=== PATIENT | female | born 1990 | race Caucasian/White ===

== ENCOUNTER 2018-05-10 15:26 | Emergency (ER) | payer OTHER ==
[~2018-05-10] VITALS: Ht 177.8 cm; Wt 77.1 kg
[2018-05-10 15:32] VITALS: BP 137/80
--- NOTE | 2018-05-10 15:32 | NUR ---
ED Nurse Note: patient brought in by ambulance [id number] [facility], altered mental status, possible OD. patient is confused at this time.
--- NOTE | 2018-05-10 15:40 | Emergency Room Report ---
History of Present Illness General Chief Complaint: Altered Mental Status Source: EMS (Denis Mensah MD) Present Illness HPI Patient is a 28-year-old female brought in by EMS with [employer] for increased altered mental status. Patient was noted to have bizarre behavior. Patient was noted to have unknown past medical history. History is markedly limited by patient's mental status and poor historian.. Patient had been found lying in the park (Denis Mensah MD) Allergies: Coded Allergies: UNABLE TO ASSESS (Unverified , 05/10/18) Patient History Last Menstrual Period: unk Reviewed Nursing Documentation: PMH: Agreed; PSxH: Agreed (Denis Mensah MD) Nursing Documentation-PMH Past Medical History Deferred: Pt Cognitively Impaired (Denis Mensah MD) Review of Systems All Other Systems: negative except mentioned in HPI (Denis Mensah MD) Physical Exam Vital Signs Date Time Temp Pulse Resp B/P (MAP) Pulse Ox O2 Delivery O2 Flow Rate FiO2 05/10/18 15:22 98.4 98 18 137/80 97 Room Air Sp02 EP Interpretation: reviewed, normal General Appearance: normal inspection, well appearing, no apparent distress, alert, non-toxic Head: atraumatic ENT: normal ENT inspection, hearing grossly normal, normal voice Neck: normal inspection, full range of motion, supple, no bony tend Respiratory: normal inspection, lungs clear, normal breath sounds, no respiratory distress, no retraction, no wheezing Cardiovascular #1: regular rate, rhythm, no edema Gastrointestinal: normal inspection, normal bowel sounds, non tender, soft, no guarding, no hernia Genitourinary: no CVA tenderness Musculoskeletal: normal inspection, back normal, normal range of motion Neurologic: normal inspection, alert, oriented x3, responsive, human resources district manager III-XII nml as tested, speech normal Psychiatric: normal inspection, judgement/insight normal, mood/affect normal Skin: normal inspection, normal color, no rash (Denis Mensah MD) Medical Decision Making Diagnostic Impression: Primary Impression: Bipolar disorder Qualified Codes: F31.64 - Bipolar disorder, current episode mixed, severe, with psychotic features Additional Impression: UTI (urinary tract infection) Qualified Codes: N30.00 - Acute cystitis without hematuria ER Course Patient presented for altered mental status. Differential diagnosis included was not limited to alcohol intoxication, substance abuse, psychosis, CVA among others. Because of complexity of patient's case laboratory testing. Patient was noted to have some bizarre behavior. She was given medications due to agitation. (Denis Mensah MD) ER Course See above note. Patient still with bizarre thought processes. States PMD wanted her off of lithium. She also states she gets a "shot" of Abilify. Abilify ordered. Needs psychiatric evaluation in AM for placement. Slight improvement after Abilify. Medically clear for psychiatric evaluation. Signed out to Dr. Smith. Laboratory Tests Test 05/10/18 15:57 05/10/18 16:51 White Blood Count 10.7 K/UL (4.8-10.8) Red Blood Count 4.01 M/UL (4.20-5.40) L Hemoglobin 12.3 G/DL (12.0-16.0) Hematocrit 36.1 % (37.0-47.0) L Mean Corpuscular Volume 90 FL (80-99) Mean Corpuscular Hemoglobin 30.7 PG (27.0-31.0) Mean Corpuscular Hemoglobin Concent 34.1 G/DL (32.0-36.0) Red Cell Distribution Width 11.5 % (11.6-14.8) L Platelet Count 240 K/UL (150-450) Mean Platelet Volume 6.5 FL (6.5-10.1) Neutrophils (%) (Auto) 80.2 % (45.0-75.0) H Lymphocytes (%) (Auto) 12.9 % (20.0-45.0) L Monocytes (%) (Auto) 5.3 % (1.0-10.0) Eosinophils (%) (Auto) 0.1 % (0.0-3.0) Basophils (%) (Auto) 1.5 % (0.0-2.0) Sodium Level 141 MMOL/L (136-145) Potassium Level 3.8 MMOL/L (3.5-5.1) Chloride Level 106 MMOL/L (98-107) Carbon Dioxide Level 24 MMOL/L (21-32) Anion Gap 11 mmol/L (5-15) Blood Urea Nitrogen 13 mg/dL (7-18) Creatinine 1.0 MG/DL (0.55-1.30) Estimate Glomerular Filtration Rate > 60 mL/min (>60) Glucose Level 108 MG/DL (74-106) H Calcium Level 8.8 MG/DL (8.5-10.1) Total Bilirubin 0.3 MG/DL (0.2-1.0) Aspartate Amino Transferase (AST) 22 U/L (15-37) Alanine Aminotransferase (ALT) 25 U/L (12-78) Alkaline Phosphatase 45 U/L (46-116) L Total Protein 7.6 G/DL (6.4-8.2) Albumin 4.2 G/DL (3.4-5.0) Globulin 3.4 g/dL Albumin/Globulin Ratio 1.2 (1.0-2.7) Salicylates Level 0.5 ug/mL (2.8-20) L Acetaminophen Level < 2 MCG/ML (10-30) L Serum Alcohol < 3 mg/dL Rapid Plasma Reagin Pending Urine Color Pale yellow Urine Appearance Slightly cloudy Urine pH 7 (4.5-8.0) Urine Specific [place] 1.005 (1.005-1.035) Urine Protein 1+ (NEGATIVE) H Urine Glucose (UA) Negative (NEGATIVE) Urine Ketones Negative (NEGATIVE) Urine Blood 1+ (NEGATIVE) H Urine Nitrite Negative (NEGATIVE) Urine Bilirubin Negative (NEGATIVE) Urine Urobilinogen Normal MG/DL (0.0-1.0) Urine Leukocyte Esterase 2+ (NEGATIVE) H Urine RBC 2-4 /HPF (0 - 2) H Urine WBC 40-60 /HPF (0 - 2) H Urine Squamous Epithelial Cells Many /LPF (NONE/OCC) H Urine Bacteria Moderate /HPF (NONE) H Urine HCG, Qualitative Negative (NEGATIVE) Urine Opiates Screen Negative (NEGATIVE) Urine Barbiturates Screen Negative (NEGATIVE) Phencyclidine (PCP) Screen Negative (NEGATIVE) Urine Amphetamines Screen Negative (NEGATIVE) Urine Benzodiazepines Screen Negative (NEGATIVE) Urine Cocaine Screen Negative (NEGATIVE) Urine Marijuana (THC) Screen Positive (NEGATIVE) H (Shahram Dill MD) Last Vital Signs Date Time Temp Pulse Resp B/P (MAP) Pulse Ox O2 Delivery O2 Flow Rate FiO2 05/10/18 15:32 98.4 98 18 137/80 97 Room Air Status: improved (Denis Mensah MD) Status: improved (Shahram Dill MD) Disposition: HOME, SELF-CARE Condition: Improved Scripts Cephalexin* (KEFLEX*) 500 Mg Capsule 500 MG ORAL EVERY 6 HOURS, #28 CAP Prov: Denis Mensah MD 05/11/18 Denis Mensah MD May 10, 2018 15:40 Shahram Dill MD May 11, 2018 04:11
[2018-05-10] MEDS ORDERED: Haloperidol 5mg/ml Inj IM ONE (15:45)
[2018-05-10] MEDS ORDERED: DiphenhydrAMINE 50mg/ml Inj IM ONE (15:45)
--- NOTE | 2018-05-10 16:20 | NUR ---
HAND-OFF: Report given to Tasia Dale RN.
[2018-05-10 16:37] LABS: ANION GAP 11 mmol/L (5-15); BASOPHILS % (AUTO) 1.5 % (0.0-2.0); BLOOD UREA NITROGEN 13 mg/dL (7-18); CALCIUM 8.8 MG/DL (8.5-10.1); CARBON DIOXIDE 24 MMOL/L (21-32); CHLORIDE 106 MMOL/L (98-107); EOSINOPHILS % (AUTO) 0.1 % (0.0-3.0); HEMATOCRIT 36.1 % (37.0-47.0); HEMOGLOBIN 12.3 G/DL (12.0-16.0); LYMPHOCYTES % (AUTO) 12.9 % (20.0-45.0); MEAN CORPUSCULAR VOLUME 90 FL (80-99); MONOCYTES % (AUTO) 5.3 % (1.0-10.0); NEUTROPHILS % (AUTO) 80.2 % (45.0-75.0); PLATELET COUNT 240 K/UL (150-450); POTASSIUM 3.8 MMOL/L (3.5-5.1); RED BLOOD COUNT 4.01 M/UL (4.20-5.40); RED CELL DISTRIBUTION WIDTH 11.5 % (11.6-14.8); SODIUM 141 MMOL/L (136-145); WHITE BLOOD COUNT 10.7 K/UL (4.8-10.8)
[2018-05-10 16:47] LABS: ALANINE AMINOTRANSFERASE 25 U/L (12-78); ALBUMIN 4.2 G/DL (3.4-5.0); ALBUMIN/GLOBULIN RATIO 1.2 (1.0-2.7); ALKALINE PHOSPHATASE 45 U/L (46-116); ASPARTATE AMINO TRANSFERASE 22 U/L (15-37); BILIRUBIN,TOTAL 0.3 MG/DL (0.2-1.0)
--- NOTE | 2018-05-10 18:25 | NUR ---
ED Nurse Note: Pt restless and disoriented and keeps walking out from her room. Sylvia is sitting. Charge nurse aware.
[2018-05-10 19:30] VITALS: BP 135/76
--- NOTE | 2018-05-10 19:36 | NUR ---
HAND-OFF: Report given to Yan STAFFORD.
--- NOTE | 2018-05-10 19:45 | NUR ---
Transport pt to the 4th floor, asst her with a shower ,linen changed, pt is back in bed resting comfortably.
--- NOTE | 2018-05-10 19:56 | NUR ---
ED Nurse Note: Pt out of room, seems euphoric, indiscriminately physically approaching men - visitors, patients, staff. Safety of all maintained. Pt easily escorted back to room.
--- NOTE | 2018-05-10 19:56 | NUR ---
Went to get the pt something to eat, ask Sebastien SOL to keep an eye on the pt while I was away from the room.
--- NOTE | 2018-05-10 21:02 | NUR ---
Assist pt with a phone call to her ex-boyfriend [phone].only #she memorizes because her IPhone needs to be charged.
[2018-05-10 21:24] VITALS: BP 133/75
--- NOTE | 2018-05-10 22:14 | NUR ---
Pt is very restless, up and constantly pacing.
[2018-05-10 23:20] VITALS: BP 130/72
[2018-05-10 23:21] LABS: BILIRUBIN, URINE NEGATIVE (NEGATIVE); COLOR,URINE PALE YELLOW; GLUCOSE, URINE (UA) NEGATIVE (NEGATIVE); KETONES,URINE NEGATIVE (NEGATIVE); LEUKOCYTE ESTERASE ,URINE 2+ (NEGATIVE); NITRITE,URINE NEGATIVE (NEGATIVE); PH,URINE 7 (4.5-8.0); PROTEIN,URINE 1+ (NEGATIVE); UROBILINOGEN,URINE NORMAL MG/DL (0.0-1.0)
--- NOTE | 2018-05-10 23:43 | NUR ---
ED Nurse Note: Spoke with Pt's former , who states pt averages a manic phase annually, and has been placed on 5150 x 3, in the last five years. Pt is clearly escalating/manic.
[2018-05-10 23:48] LABS: APPEARANCE,URINE SLIGHTLY CLOUDY
[2018-05-11] VITALS (9 sets, daily range): BP systolic 106–130; BP diastolic 62–72
--- NOTE | 2018-05-11 03:26 | NUR ---
Pt finally went to sleep.side rails up for pt safety.
--- NOTE | 2018-05-11 03:40 | NUR ---
Pt awaken from the moans and groans comming from the pt in ortho.
--- NOTE | 2018-05-11 04:28 | NUR ---
ED Nurse Note: Patient is resting comfortably, no s/s of acute distress. Patient able to execute medication administration. Sitter at bedside.
--- NOTE | 2018-05-11 04:43 | NUR ---
Had to take a break to the B/R, securityguard was sitting at the doorway.
--- NOTE | 2018-05-11 04:45 | NUR ---
I am back from the B/R ,pt is still asleep and breathing normal.
--- NOTE | 2018-05-11 05:19 | NUR ---
Pt is awake, assist her to the b/r and back to her room.pt walk with a steady gait.
--- NOTE | 2018-05-11 07:15 | NUR ---
Jamey escobedo in [facility] - 05/11/18 at 0734 by JAMAL VENTURA:
--- NOTE | 2018-05-11 07:15 | NUR ---
ED Nurse Note: Received patient in bed, Patient is alert and awake x3, listening to music and singing. sitter at bedside. Breakfast try provided to the patient.
--- NOTE | 2018-05-11 13:00 | NUR ---
ED Nurse Note: lunch tray provided to the patient.
--- NOTE | 2018-05-11 14:00 | NUR ---
DEANDRE FROM [facility] CALLED WILL BE HERE TO EVALUATE HER SOON HE CAN
--- NOTE | 2018-05-11 16:44 | NUR ---
ED Nurse Note: confirmed with charge nurse that [facility] is notified and they will come to check the patient, patient updated as well.
--- NOTE | 2018-05-11 17:50 | NUR ---
ED Nurse Note: provided dinner tray for patient.
--- NOTE | 2018-05-11 19:23 | NUR ---
HAND-OFF: Report given to Leo Jarrett RN.
--- NOTE | 2018-05-11 20:35 | NUR ---
ED Nurse Note: pt on gurney, calm and cooperative. pt has no complaint at the moment. sitter on bedside. vital signs within normal limit. will continue to monitor
--- NOTE | 2018-05-11 22:47 | NUR ---
ED Nurse Note: psyche team on bedside talking with pt. will continue to monitor
[2018-05-11] MEDS ORDERED: ABILIFY10 MG ORAL (22:55)
[2018-05-11] MEDS ORDERED: CEPHALEXIN500 MG ORAL (23:00)
--- NOTE | 2018-05-11 23:00 | NUR ---
ED Nurse Note: Michelle from [facility] states patient does not meet criteria for a hold.
--- NOTE | 2018-05-11 23:03 | NUR ---
ED Nurse Note: Patient is being discharged from ED alert and oriented x4, ambulatory with a steady gait, VSS. Patient acknowledged the need to follow up with a PMD, Patient was advised to return if symptoms worsen. prescription in hand, ID band removed. pt left the ed with all the belongings.
== END 2018-05-11 23:05 | disposition home or self-care (01) ==
LOC: EDBD 15:26 → EMR 18:04
DX: F31.9 Bipolar disorder, unspecified (principal); N39.0 Urinary tract infection, site not specified; R41.82 Altered mental status, unspecified
CPT/HCPCS: 36415; 80053; 80307; 80329; 81003; 81025; 85025; 86592; 87086; 96372; 99284; J1200; J1630

== ENCOUNTER 2018-05-17 14:52 | Emergency (ER) | payer OTHER ==
[2018-05-17] VITALS (13 sets, daily range): BP systolic 105–125; BP diastolic 70–92
[~2018-05-17] VITALS: Ht 177.8 cm; Wt 83.9 kg
[~2018-05-17 14:52] MED LIST: ABILIFY10 MG ORAL; CEPHALEXIN500 MG ORAL
--- NOTE | 2018-05-17 14:52 | NUR ---
ED Nurse Note: patient brought in by ambulance, found on the ground in a parking lot acting bizarre.
--- NOTE | 2018-05-17 15:06 | Emergency Room Report ---
History of Present Illness General Chief Complaint: General Complaint Source: Patient, EMS (Denis Mensah MD) Present Illness HPI Patient is a 28-year-old female brought in by EMS after increased altered mental status and confusion. Patient had prior history of bipolar disorder. She had recently been seen by me at this facility. Patient was noted to have prior history of marijuana abuse. She denies any complaints at this time. History is markedly limited by poor historian. (Denis Mensah MD) Allergies: Coded Allergies: No Known Allergies (Unverified , 05/17/18) UNABLE TO ASSESS (Unverified , 05/10/18) Patient History Now: No (Denis Mensah MD) Review of Systems All Other Systems: limited - by poor historian (Denis Mensah MD) Physical Exam Vital Signs Date Time Temp Pulse Resp B/P (MAP) Pulse Ox O2 Delivery O2 Flow Rate FiO2 05/17/18 14:45 98.1 96 16 136/96 99 Room Air Sp02 EP Interpretation: reviewed, normal General Appearance: alert/responsive, no apparent distress, GCS 15, non-toxic Head: normocephalic, atraumatic Eyes: PERRL, lids + conjunctiva normal ENT: hearing intact, no angioedema Neck: supple/symm/no masses Respiratory: effort normal, no wheezing, chest symmetrical Cardiovascular: regular rate, rhythm, no edema Cardiovascular #2: 2+ carotid (R), 2+ carotid (L), 2+ dorsalis pedis (R), 2+ dorsalis pedis (L) Gastrointestinal: normal inspection, normal bowel sounds Musculoskeletal: gait & station normal, strength & tone normal, normal ROM, non -tender Neurologic: normal inspection, CN II-XII intact, oriented x3, sensory intact, normal speech Psychiatric: other - poor insight, bizarre behavior Skin: no rash, well hydrated Lymphatic: normal inspection (Denis Mensah MD) Procedures Critical Care Time Critical Care Time Critical care is mandated in this patient who presented with acute psychosis. Patient require my urgent intervention to attenuate the risks of self-harm which may lead to danger to self and other. Critical care time is 35 minutes excluding any reportable procedure. Critical care time included evaluation, multiple reevaluation, looking at old charts, interpreting laboratory and diagnostic data, discussing case with patient and family and consultants, and charting. (Niraj Walker MD) Medical Decision Making Restraint Attestation I, Denis Mensah MD, have personally evaluated this patient. Laboratory tests have been reviewed and addressed accordingly. The patient is deemed to present a danger to themselves and/or others. This is based on the exam, history ( provided by patient, EMS/[employer] and/or family) and observed or reported behavior. Attempts for non-invasive measures have been considered and/or attempted, however, have been futile. It is in the best interest of the nursing staff, the patient, and others involved in this patient's care that behavioral restraints be applied. Patient evaluation reveals the following: Patient screaming loudly and threatening staff.Patient is also saying let me (Denis Mensah MD) Diagnostic Impression: Primary Impression: Bipolar disorder Qualified Codes: F31.2 - Bipolar disorder, current episode manic severe with psychotic features Additional Impression: Substance abuse ER Course Patient presented for increased agitation. Differential diagnoses include substance abuse, psychosis, bipolar disorder, depression, malingering. Because of complexity of patient's case laboratory testing and imaging studies were ordered. She was noted to have increased agitation as well as drug screen positive for marijuana. Patient was medically cleared for psychiatric evaluation. Patient had recently been in the emergency department for similar symptoms.Patient was noted to have increased agitation and was subsequently placed in restraints. She was given medications for sedation. Patient had recent similar visit and patient will likely require further psychiatric evaluation. Labs Test 05/17/18 15:27 White Blood Count 8.0 K/UL (4.8-10.8) Red Blood Count 4.12 M/UL (4.20-5.40) Hemoglobin 12.4 G/DL (12.0-16.0) Hematocrit 37.8 % (37.0-47.0) Mean Corpuscular Volume 92 FL (80-99) Mean Corpuscular Hemoglobin 30.2 PG (27.0-31.0) Mean Corpuscular Hemoglobin Concent 32.9 G/DL (32.0-36.0) Red Cell Distribution Width 11.1 % (11.6-14.8) Platelet Count 167 K/UL (150-450) Mean Platelet Volume 6.7 FL (6.5-10.1) Neutrophils (%) (Auto) 59.4 % (45.0-75.0) Lymphocytes (%) (Auto) 28.9 % (20.0-45.0) Monocytes (%) (Auto) 7.5 % (1.0-10.0) Eosinophils (%) (Auto) 2.4 % (0.0-3.0) Basophils (%) (Auto) 1.8 % (0.0-2.0) Urine Color Pale yellow Urine Appearance Slightly cloudy Urine pH 8 (4.5-8.0) Urine Specific [place] 1.010 (1.005-1.035) Urine Protein Negative (NEGATIVE) Urine Glucose (UA) Negative (NEGATIVE) Urine Ketones Negative (NEGATIVE) Urine Blood Negative (NEGATIVE) Urine Nitrite Negative (NEGATIVE) Urine Bilirubin Negative (NEGATIVE) Urine Urobilinogen Normal MG/DL (0.0-1.0) Urine Leukocyte Esterase 2+ (NEGATIVE) Urine RBC 0 /HPF (0 - 2) Urine WBC 2-4 /HPF (0 - 2) Urine Squamous Epithelial Cells Few /LPF (NONE/OCC) Urine Bacteria Few /HPF (NONE) Urine HCG, Qualitative Negative (NEGATIVE) Sodium Level 138 MMOL/L (136-145) Potassium Level 5.0 MMOL/L (3.5-5.1) Chloride Level 105 MMOL/L (98-107) Carbon Dioxide Level 25 MMOL/L (21-32) Anion Gap 8 mmol/L (5-15) Blood Urea Nitrogen 14 mg/dL (7-18) Creatinine 0.9 MG/DL (0.55-1.30) Estimat Glomerular Filtration Rate > 60 mL/min (>60) Glucose Level 84 MG/DL (74-106) Calcium Level 8.5 MG/DL (8.5-10.1) Total Bilirubin 0.6 MG/DL (0.2-1.0) Aspartate Amino Transf (AST/SGOT) 32 U/L (15-37) Alanine Aminotransferase (ALT/SGPT) 24 U/L (12-78) Alkaline Phosphatase 47 U/L (46-116) Total Protein 7.1 G/DL (6.4-8.2) Albumin 3.8 G/DL (3.4-5.0) Globulin 3.3 g/dL Albumin/Globulin Ratio 1.2 (1.0-2.7) Salicylates Level < 0.2 ug/mL (2.8-20) Urine Opiates Screen Negative (NEGATIVE) Acetaminophen Level < 2 MCG/ML (10-30) Urine Barbiturates Screen Negative (NEGATIVE) Phencyclidine (PCP) Screen Negative (NEGATIVE) Urine Amphetamines Screen Negative (NEGATIVE) Urine Benzodiazepines Screen Negative (NEGATIVE) Urine Cocaine Screen Negative (NEGATIVE) Urine Marijuana (THC) Screen Positive (NEGATIVE) Serum Alcohol < 3 mg/dL (Denis Mensah MD) ER Course Patient signout to me. She is awaiting psychiatric evaluation. She is brought in for altered mental status. She was reported missing. She was found in parking lot acting bizarrely. She was pulling on the ground shouting and being aggressive. She was here last week for the same thing. While she was in the ER she was very hypersexual with making inappropriate sexual comments and following male staff around. I was able to get more information from her roommate. He said that after talking to her ex- and family and [place], patient has a history of bipolar with psychotic breaks. She would get very aggressive and hypersexual. She has been agitated and not sleeping. She was here last week and was discharged after PET team evaluation. The next day she checked into [facility] and was therefore 2 days. She was just discharged from the psychiatric facility and again had another psychotic, manic episode. Because of this, in my professional medical evaluation, patient is a danger to self. Therefore I place the patient on a 5150 hold. We will attempt to transfer patient to psychiatric facility for further treatment. (Niraj Walker MD) ER Course Earlier in my shift, patient ran out of the ER agitated, we brought her back, and then gave another round of ativan, benadryl, haldol IM. Patient remained stable and medically clear, accepted to Dr. Dorian Schwartz. (ALFREDO VASQUEZ M.D) Last Vital Signs Date Time Temp Pulse Resp B/P (MAP) Pulse Ox O2 Delivery O2 Flow Rate FiO2 05/17/18 14:45 98.1 96 16 136/96 99 Room Air Status: improved (Denis Mensah MD) Status: improved (Niraj Walker MD) Disposition: XFER TO PSYCH HOSP/UNIT Condition: Stable Denis Mensah MD May 17, 2018 15:06 Niraj Walker MD May 18, 2018 05:40 ALFREDO VASQUEZ M.D May 18, 2018 11:43
[2018-05-17 16:03] LABS: BASOPHILS % (AUTO) 1.8 % (0.0-2.0); EOSINOPHILS % (AUTO) 2.4 % (0.0-3.0); HEMATOCRIT 37.8 % (37.0-47.0); HEMOGLOBIN 12.4 G/DL (12.0-16.0); LYMPHOCYTES % (AUTO) 28.9 % (20.0-45.0); MEAN CORPUSCULAR VOLUME 92 FL (80-99); MONOCYTES % (AUTO) 7.5 % (1.0-10.0); NEUTROPHILS % (AUTO) 59.4 % (45.0-75.0); PLATELET COUNT 167 K/UL (150-450); RED BLOOD COUNT 4.12 M/UL (4.20-5.40); RED CELL DISTRIBUTION WIDTH 11.1 % (11.6-14.8)
[2018-05-17 16:04] LABS: APPEARANCE,URINE SLIGHTLY CLOUDY; BILIRUBIN, URINE NEGATIVE (NEGATIVE); COLOR,URINE PALE YELLOW; GLUCOSE, URINE (UA) NEGATIVE (NEGATIVE); KETONES,URINE NEGATIVE (NEGATIVE); LEUKOCYTE ESTERASE ,URINE 2+ (NEGATIVE); NITRITE,URINE NEGATIVE (NEGATIVE); PH,URINE 8 (4.5-8.0); PROTEIN,URINE NEGATIVE (NEGATIVE); UROBILINOGEN,URINE NORMAL MG/DL (0.0-1.0)
[2018-05-17 16:23] LABS: ANION GAP 8 mmol/L (5-15); BLOOD UREA NITROGEN 14 mg/dL (7-18); CALCIUM 8.5 MG/DL (8.5-10.1); CARBON DIOXIDE 25 MMOL/L (21-32); CHLORIDE 105 MMOL/L (98-107); CREATININE 0.9 MG/DL (0.55-1.30); SODIUM 138 MMOL/L (136-145)
[2018-05-17 16:26] LABS: ALANINE AMINOTRANSFERASE 24 U/L (12-78); ALBUMIN 3.8 G/DL (3.4-5.0); ALBUMIN/GLOBULIN RATIO 1.2 (1.0-2.7); ALKALINE PHOSPHATASE 47 U/L (46-116); ASPARTATE AMINO TRANSFERASE 32 U/L (15-37); BILIRUBIN,TOTAL 0.6 MG/DL (0.2-1.0)
--- NOTE | 2018-05-17 17:00 | NUR ---
ED Nurse Note: patient is combative and not cooperative with care, patient almost kick a nurse while trying to get blood/urine specimen patient is verbally abusive using "bitch" stating "get the fuck off"
--- NOTE | 2018-05-17 18:22 | NUR ---
ED Nurse Note: right wrist leather restraint is off.
--- NOTE | 2018-05-17 19:30 | NUR ---
HAND-OFF: Report given to Chiquis STAFFORD
[2018-05-17] MEDS ORDERED: Haloperidol 5mg/ml Inj IM ONE (19:45)
[2018-05-17] MEDS ORDERED: LORazepam Inj 2mg/ml 1ml IM ONE (19:45)
[2018-05-17] MEDS ORDERED: DiphenhydrAMINE 50mg/ml Inj IM ONE (19:45)
--- NOTE | 2018-05-17 19:45 | NUR ---
ED Nurse Note: pt is agitated and started to yell at the rn and the sitter, pt is aggressive. seen by ermd, and ordered restraints and im meds and carried out. rn and sitter and security on bedside. pt is yelling. will continue to monitor.
--- NOTE | 2018-05-17 20:40 | NUR ---
ED Nurse Note: pt is sleeping on gurney, calm. sitter on bedside. will continue to monitor.
--- NOTE | 2018-05-18 00:39 | NUR ---
[facility](spoke w/ James) [facility] (spoke w/ Shahana) and no beds are available and was told to call back in the morning after 0830
[2018-05-18 02:28] VITALS: BP 115/75
--- NOTE | 2018-05-18 02:28 | NUR ---
ED Nurse Note: pt sleeping on gurney, sitter on bedside. pt not in distress. will continue to monitor
--- NOTE | 2018-05-18 04:16 | NUR ---
ED Nurse Note: pt is calmly sleeping on bed, sitter is on bedside. will continue to monitor.
[2018-05-18 04:17] VITALS: BP 116/82
--- NOTE | 2018-05-18 04:22 | NUR ---
ED Nurse Note: [facility] Officer Ana called stating that patient was reported missing - filed at 0200 today - she had not been seen since 05/17/18 at noon by roommates. [facility] states that "everyone is looking, we even had the helicopter up..."
--- NOTE | 2018-05-18 04:25 | NUR ---
ED Nurse Note: [facility] on ed looking for a pt as a missing person report to them around 0200. pt is awake now,. sitter on bedside. will continue to monitor.
--- NOTE | 2018-05-18 05:09 | NUR ---
ED Nurse Note: caitie hunter [phone] on ed visiting the pt o bedside
--- NOTE | 2018-05-18 05:30 | NUR ---
ED Nurse Note: pt on 5150 hold, belongings placed on locker #3. sitter on bedside.pt is on gurney, calm and cooperative at the moment. will continue to monitor
[2018-05-18 05:59] VITALS: BP 96/69
--- NOTE | 2018-05-18 06:02 | NUR ---
[facility] was called spoke to [facility] from both facilities and paperwork has been faxed @ [phone]
--- NOTE | 2018-05-18 07:28 | NUR ---
ED Nurse Note:pt. is in room, compliant, waiting for breakfast tray, dietary was called, security is in the [address]
[2018-05-18] MEDS ORDERED: Haloperidol 5mg/ml Inj IM ONE (09:15)
[2018-05-18] MEDS ORDERED: LORazepam Inj 2mg/ml 1ml IM ONE (09:15)
[2018-05-18] MEDS ORDERED: DiphenhydrAMINE 50mg/ml Inj IM ONE (09:15)
--- NOTE | 2018-05-18 09:50 | NUR ---
ED Nurse Note:pt. is in her room comfortable ,started to get resstless ,was given IM meds per MD order continue monitor, security is outside of her room
[2018-05-18 10:00] VITALS: BP 109/72
--- NOTE | 2018-05-18 11:51 | NUR ---
ED Nurse Note: DARIOHUMZA LYDIA, FATHER CALLED TO CHECK UP DAUGHTER [phone]
[2018-05-18 13:28] VITALS: BP 105/71
--- NOTE | 2018-05-18 13:30 | NUR ---
ED Nurse Note:called report to [facility]- given to Gregory nurse and report to paramedics were given, her personal belongings given to pt. she was picked up by ambulance for transfer
[2018-05-18 13:31] VITALS: BP 105/71
== END 2018-05-18 14:01 ==
LOC: EDBD 14:52 → EMR 15:15
DX: F31.9 Bipolar disorder, unspecified (principal); F12.10 Cannabis abuse, uncomplicated
CPT/HCPCS: 36415; 80053; 80307; 80329; 81003; 81025; 85025; 96372; 99291; J1200; J1630